=== PATIENT | female | born 1995 | race Caucasian/White ===

== ENCOUNTER → 2020-07-11 13:57 | Outpatient (BNVA) | payer OTHER, SELFPAY | PROVIDERS: Visit Provider Specialist | DX: Z20.828 Contact with and (suspected) exposure to other viral communicable diseases (principal) | CPT/HCPCS: 87635 ==

== ENCOUNTER 2020-07-16 10:52 | Observation (INO) | payer SELFPAY ==
[2020-07-15 09:35] VITALS: BMI 24.4
[2020-07-16] VITALS (65 sets, daily range): BP systolic 91–131; BP diastolic 42–75; PULSE 62–105; RESP 3–25; TEMP 36.7–37; O2SAT 91–99
--- NOTE | 2020-07-16 06:26 | ANES.PREANE2 ---
Pre-Anesthetic Assessment Pre-Anesthetic Assessment: Height/Weight: Height 1.65 m Weight 66.678 kg Temp Pulse Resp BP Pulse Ox 98.1 F 83 18 114/71 97 07/16/20 06:07 07/16/20 06:07 07/16/20 06:07 07/16/20 06:07 07/16/20 06:07 Preop Diagnosis: thyroid mass Proposed Procedure: Operation Date: 07/16/20 07:00 Proposed Procedures p Hemithyroidectomy 27660 C73(Not Applicable) - Alton Chirinos MD Familial anesthetic complications: None Was Beta Bogdan taken within 24 hours: N/A Was Clonidine taken within 24 hours: N/A Last intake: > 8hrs Social: Social History: No alcohol and No tobacco Exam: Pre-Anes Outpt Exam: alert, oriented x 3, clear to auscultation bilaterally and regular rate & rhythm Airway: Cervical ROM: WNL MP: 3 Dentition: Full Anesthetic Plan: ASA status: 1 Anesthesia: General Risk of > 500 ml blood loss (7ml/kg in children): No PFSH Anesthesia Female Reproductive History: Date of last menstrual period: 06/16/20 Data Anesthesia Cardiac Studies: No Data to Display
--- NOTE | 2020-07-16 06:48 | W.PM.OPSUD ---
Surgery/Procedure H&P Update DATE OF PROCEDURE: July 16, 2020 DATE H&P PERFORMED: 07/09/20 H&P UPDATE INFORMATION: I have reviewed H&P completed within last 30 days, I have examined patient prior to procedure and No changes to prior documentation PREOP DIAGNOSIS: Left thyroid malignancy PRIMARY INDICATION FOR PROCEDURE: Left thyroid malignancy PLANNED PROCEDURE: Operation Date: 07/16/20 07:00 Proposed Procedures p Right Dylon/completion thyroidectomy 55135 C73(Not Applicable) - Alton Chirinos MD
[2020-07-16] MEDS: sodium chloride 0.9% 1,000 ML 30 ML IV (06:52)
[2020-07-16] MEDS: scopolamine 1.5 Patch 1 PATCH TRANSDERMA (06:52)
[2020-07-16 07:15] LABS: OR HCG Qualitative Urine Negative (Negative)
[2020-07-16] MEDS: triamcinolone 40 mg/mL SDV IM (07:30)
[2020-07-16] MEDS: ceFAZolin 1,000 mg SDV 1000 MG IRRIGATION (07:50)
[2020-07-16] MEDS: thrombin 5,000 unit SDV 5000 UNIT XX (07:50)
[2020-07-16] MEDS: fluorescein 1 mg Strip XX (07:50)
[2020-07-16] MEDS: EPINEPHrine 1 mg/mL INJ XX (07:50)
[2020-07-16] MEDS: neomycin-poly-bacitracin oint 28 gm 1 APPLIC TOPICAL (09:27)
--- NOTE | 2020-07-16 10:29 | PM.OP ---
Operative Report Date of procedure: July 16, 2020 Pre-op Diagnosis: Left thyroid malignancy Post-op diagnosis: same Post-op Findings: Well healed post surgical changes of the anterior neck Normal appearing right thyroid lobe Normal right recurrent laryngeal nerve O/W normal right tracheoesophageal groove Normal appearing right upper and right lower parathyroid glands Procedure Done: Right norberto/completion thyroidectomy Implants: None Specimens removed/disposition: Right thyroid lobe Pathology: Right thyroid lobe Surgeon: Alton Chirinos Mechanical Drawing Teacher: Louis Melvin Mechanical Drawing Teacher: Judah Holly Anesthesia: General Estimated blood loss (mL): 10 IV fluids (mL): 800 Complications: None Findings: See the above Condition: stable Disposition: ICU Brief History: 24 yo wf with a h/o left thyroid lobe follicular carcinoma who desires right norberto/completion thyroidectomy. Procedure: The patient was identified in the preop holding area was taken to the operating where she was placed on the operating table in the supine position. Anesthesia was obtained with general endotracheal anesthesia. The Nirvana nerve monitoring electrode was placed on the patient's endotracheal tube prior to intubation and its position was confirmed with the glide scope. The previous incision on the neck was identified and was injected local anesthesia. The patient was then prepped and draped in the usual sterile fashion. Using 5 power loupe magnification, the incision was made with a 15 blade and dissection proceeded down through the subcutaneous tissues until the trachea was identified. At this point the strap muscles were elevated off of the right thyroid lobe and the [place] retractor was placed on the patient. At this point using the Nirvana dissecting hemostat and the DeBakey forceps a circumferential dissection was carried out of the right thyroid lobe. The initial portion of the dissection began at the inferior pole after identifying and ligating the middle thyroid vein. The right thyro thymic horn was dissected free from the inferior pole of the right thyroid while protecting the inferior parathyroid. The dissection proceeded into the tracheoesophageal groove. At this point the vagus nerve was stimulated in the carotid sheath and was found to be functioning properly. At this point the dissection proceeded in a circumferential fashion after identifying the recurrent laryngeal nerve visually and electrically in the tracheoesophageal groove. The dissection proceeded superiorly while protecting the recurrent laryngeal nerve until the superior parathyroid was identified and preserved in place. The superior pole was then dissected free from the surrounding tissues. The individual superior thyroid arteries and veins branches were identified and were dissected free and individually clipped with ligaclips and were divided with the bipolar cautery. At this point the right thyroid lobe was rotated medially and the dissection proceeded medially while protecting the recurrent laryngeal nerve. The right lobe was then dissected sequentially out of the right tracheoesophageal groove. Castanon's ligament was identified and then dissected with bipolar forceps removing the right thyroid lobe completely from the patient. At this point the right lobe was inspected for parathyroids and none were found on the specimen. At this point hemostasis was achieved and the right tracheoesophageal groove with bipolar cautery. The right tracheoesophageal groove was irrigated with a copious amount of normal warm saline and the wound was reinspected for hemostasis which was found to be adequate. The right vagus nerve was again stimulated with the NeurSoSocioa dissecting hemostat and was found to be functioning properly. At this point thrombin and Decadron soaked Gelfoam were placed in the tracheoesophageal groove and a small CK drain was placed in the wound. At this point the wound was closed with interrupted 4-0 and 5-0 Monocryl sutures in the subcu and Dermabond and Steri-Strips on the skin. At this point the procedure was terminated and control of the patient was returned to anesthesia where she underwent an uneventful reversal of anesthesia and extubation and was taken to the ICU in stable condition. There were no operative or anesthetic complications
[2020-07-16] MEDS: morphine 4 mg/mL SDV 1 mL 1 MG IVP (11:09)
[2020-07-16] MEDS: famotidine 20 mg/2 mL INJ IVP ×2 (11:09→22:00)
[2020-07-16] MEDS: lactated ringers 1,000 ML 100 ML IV ×2 (11:10→21:48)
--- NOTE | 2020-07-16 11:36 | PC.NURSE ---
Patient was brought to ICU at 1020 via bed. Recovery was done by this nurse and all vitals remained WNL. Patient was complaining of discomfort from previous urinary catheter. PRN pain medication was given. Incision site steri strips in place and CK drain intact and draining serosanguineous fluid.
--- NOTE | 2020-07-16 11:55 | PC.NURSE ---
Patient gave verbal consent to give father information over the phone.
[2020-07-16 13:12] LABS: Calcium 8.8 mg/dL (8.5-10.5); Parathyroid Hormone 82.5 pg/mL (15-65)
--- NOTE | 2020-07-16 15:34 | PM.PN ---
Subjective Subjective: Interval history: 24 yo wf who is night of surgery s/p right norberto/completion thyroidectomy who is doing well by her report. She reports minimal pain medication intake. She has no other c/o. Vitals/I&O/Wt Last Vital Signs Temp 98.1 F 07/16/20 06:07 Pulse 85 07/16/20 14:00 Resp 13 07/16/20 11:50 BP 115/72 07/16/20 11:50 Pulse Ox 97 07/16/20 12:30 07/16/20 07/16/20 07/16/20 06:59 14:59 22:59 Intake Total 850 / 850 Output Total 110 / 110 Balance 740 / 740 Weight last 48 hrs Weight 66.678 kg Weight 66.678 kg Physical Exam Const: COMMON NORMALS: no acute distress and patient oriented x3 GENERAL APPEARANCE: cooperative HENMT: COMMON NORMALS: normocephalic, atraumatic, external ears normal and Normal external nose present HEAD & SCALP: normocephalic and atraumatic FACE & SINUS: normal facial exam NOSE: Normal external nose present EXTERNAL EAR: Yes external ears normal Eye: COMMON NORMALS: EOMs intact bilaterally and conjunctivae normal CONJUNCTIVA: Yes conjunctivae normal Neck/C-Spine: THYROID: other (The thyroidectomy incision is intact without erythema or swelling.) Resp: COMMON NORMALS: normal respiratory effort and clear to auscultation bilaterally AUSCULTATION: clear to auscultation bilaterally Cardio: COMMON NORMALS: regular rate and regular rhythm RATE: regular rate RHYTHM: regular rhythm GI: COMMON NORMALS: Normal to inspection, nondistended, normoactive bowel sounds present Extremity: COMMON NORMALS: normal to inspection Neuro: COMMON NORMALS: patient oriented x3 and CN's II-XII intact bilaterally Skin: COMMON NORMALS: no rashes or lesions noted GENERAL SKIN EXAM: no rashes or lesions noted Urinary Catheter Management^: Cartwright: Cath Placed During This Visit: yes Urinary Catheter Date of Insertion: 07/16/20 Urinary Catheter Time of Insertion: 07:20 A&P Additional A&P Information Impression: 24 yo wf who is night of surgery s/p right norberto/completion thyroidectomy who is doing well. Plan: Overnight ICU observation; closed suction drainage; pain control; regular diet; anticipate discharge in the am. Attestations Medical Necessity Statement*: The patient is being observed overnight for airway obstruction. Coding Level of Care Code Acute Director Equipment for Mundo Wilder
[2020-07-16] MEDS: ceFAZolin 1,000 MG in sodium chloride 0.9% (plus) 50 ML 100 MG IV ×2 (15:54→22:00)
--- NOTE | 2020-07-16 19:03 | ANE.PACU2 ---
Inpatient post-anesthesia follow up: Airway intact: Yes Vital signs: Temperature 98.1 F Pulse Rate 85 Respiratory Rate 13 Blood Pressure 115/72 Pulse Oximetry 97 Oxygen Delivery Me thod Room Air Oxygen Flow Rate Fraction of Inspir ed Oxygen Hydration adequate: Yes Nausea and vomiting: No Pain level: 2 Mental status: Baseline
[2020-07-17] VITALS (17 sets, daily range): BP systolic 84–106; BP diastolic 37–63; PULSE 65–104; RESP 14–22; TEMP 36.8–37.1; O2SAT 93–96
--- NOTE | 2020-07-17 05:24 | PM.PN ---
Subjective Subjective: Interval history: 24 yo wf who is POD #1 s/p right norberto/completion thyroidectomy who is doing well. The patient reports that she is eating well, speaking well, and has no other c/o. She reports minimal pain. Vitals/I&O/Wt Last Vital Signs Temp 98.6 F 07/17/20 04:00 Pulse 78 07/17/20 04:30 Resp 17 07/17/20 04:30 BP 94/41 07/17/20 04:30 Pulse Ox 94 07/17/20 04:30 07/16/20 07/16/20 07/17/20 14:59 22:59 06:59 Intake Total 850 / 850 2960 / 3810 Output Total 110 / 110 2009 Balance 740 / 740 950 / 1690 - 1682 Weight last 48 hrs Weight 66.678 kg Weight 66.678 kg Physical Exam Const: COMMON NORMALS: no acute distress and patient oriented x3 GENERAL APPEARANCE: cooperative and well developed ORIENTATION/CONSCIOUSNESS: Yes awake HENMT: COMMON NORMALS: normocephalic, atraumatic, hearing grossly normal bilaterally, external ears normal and Normal external nose present HEAD & SCALP: normocephalic and atraumatic FACE & SINUS: normal facial exam NOSE: Normal external nose present EXTERNAL EAR: Yes external ears normal Eye: COMMON NORMALS: EOMs intact bilaterally GENERAL EYE: appearance normal, both eyes and all related structures Neck/C-Spine: COMMON NORMALS: full ROM and no lymphadenopathy GENERAL: Yes other (The thyroidectomy incision is clean, intact, and without swelling.) Resp: COMMON NORMALS: normal respiratory effort and clear to auscultation bilaterally AUSCULTATION: clear to auscultation bilaterally Cardio: COMMON NORMALS: regular rate, regular rhythm and No murmurs present (Cardio) RATE: regular rate RHYTHM: regular rhythm Extremity: COMMON NORMALS: normal to inspection Neuro: COMMON NORMALS: patient oriented x3 and CN's II-XII intact bilaterally Psych: COMMON NORMALS: mental status grossly normal Skin: COMMON NORMALS: no rashes or lesions noted GENERAL SKIN EXAM: no rashes or lesions noted Urinary Catheter Management^: Cartwright: Cath Placed During This Visit: yes Urinary Catheter Date of Insertion: 07/16/20 Urinary Catheter Time of Insertion: 07:20 Data Attestation for Other Data: I personally reviewed and interpreted the following: Other data: Intact PTH and serum Calcium levels A&P Additional A&P Information Impression: 24 yo wf who is POD #1 s/p right norberto/completion thyroidectomy who is doing well Plan: D/C to home; regular diet; empty CK drain once daily and prn; f/u in Dr. Chirinos's office on July, @ 13:00 hours; contact Dr. Chirinos for any problems. We will start Synthroid at the first post op visit. Attestations Medical Necessity Statement*: The patient required overnight observation of her airway. Coding Level of Care Code Acute Corporate Intern for [employer] Wilder
--- NOTE | 2020-07-17 08:16 | PC.NURSE ---
Patient was discharged at 0800 by this nurse via wheelchair. Patient was accompanied by in personal vehicle. All discharge instructions and orders were with patient.
== END 2020-07-17 08:00 | disposition home or self-care (01) ==
LOC: ICU 07-17 05:35
PROVIDERS: Admitting Provider Specialist; Visit Provider Specialist
PROC: (CPT 60240; principal; 2020-07-16 07:00)
DX: C73 Malignant neoplasm of thyroid gland (principal)
CPT/HCPCS: 60240; 12345; 36415; 51702; 81025; 82310; 83970; 84703; 88307; 94664; G0378; J0171; J0330; J0690; J1100; J2270; J2370; J2405; J2704; J3010; J3301; J3490; J7030

== ENCOUNTER → 2020-07-22 11:00 | Outpatient (BNVA) | payer SELFPAY | PROVIDERS: Referring Provider Nurse Practitioner Family; Visit Provider Podiatrist Foot & Ankle Surgery | DX: M25.579 Pain in unspecified ankle and joints of unspecified foot (principal) | CPT/HCPCS: 73610; 87635 ==

== ENCOUNTER 2020-07-23 05:51 | Day surgery (SDC) | payer SELFPAY ==
[2020-07-22 16:07] VITALS: BMI 24.4
[2020-07-23] VITALS (10 sets, daily range): BP systolic 99–117; BP diastolic 65–82; PULSE 60–89; RESP 10–18; TEMP 36.4–36.6; O2SAT 95–100
--- NOTE | 2020-07-23 | SCC_ITS ---
Procedure Done: Open reduction internal fixation right medial malleolus fracture. CPT 75506 22 seconds of fluoroscopic guidance, for a cumulative dose of 0.590 mGy, was provided to Dr. Sullivan by the radiology department. C-arm images of the RIGHT ankle were saved for the patient's permanent record. [facility] HEALTHSukhjinder
[2020-07-23 06:10] LABS: OR HCG Qualitative Urine Negative (Negative)
--- NOTE | 2020-07-23 06:19 | W.PM.OPSUD ---
Surgery/Procedure H&P Update DATE OF PROCEDURE: July 23, 2020 DATE H&P PERFORMED: 07/22/20 H&P UPDATE INFORMATION: I have reviewed H&P completed within last 30 days, I have examined patient prior to procedure, No changes to prior documentation and H&P is in [facility] EMR on date indicated PREOP DIAGNOSIS: Right medial malleolus fracture PLANNED PROCEDURE: Operation Date: 07/23/20 07:00 Proposed Procedures p Open reduction internal fixation right medial malleolus fracture 02243 S82.55(Right) - Richmond Sullivan DPM
--- NOTE | 2020-07-23 06:24 | PM.OP ---
Operative Report Date of procedure: July 23, 2020 Pre-op Diagnosis: Right medial malleolus fracture Post-op diagnosis: same Post-op Findings: None Procedure Done: Open reduction internal fixation right medial malleolus fracture. CPT 40775 Implants: Petr 4.0 x 55 mm headed partially-threaded cannulated screw x2 Specimens removed/disposition: None Pathology: none sent Surgeon: Richmond Sullivan D.P.M. Financial Services Consultant: Ramila Anesthesia: General Estimated blood loss: Less than 5 mL Tourniquet time: See intraoperative documentation IV fluids: None Urine output: None Complications: None Condition: stable Disposition: PACU Brief History: Bucked off a horse injuring her right ankle has a medial malleolar fracture that is displaced anteriorly. Recommend open reduction internal fixation right ankle risks include pain, bleeding, numbness, infection, delayed union, malunion, hardware irritation and hardware failure need for further surgical intervention there also is highly likely to result in posttraumatic arthritis. Risks of surgical site dehiscence, bruising and swelling. Risk of DVT, PE, heart attack and stroke. Patient wishes to proceed informed consent is signed by myself and patient I initialed the right lower extremity indicating the site of surgery all questions answered to her satisfaction. No guarantees written, expressed or implied. Procedure: Popliteal block right lower extremity performed for anesthesia preoperatively. Patient was brought to the operating room and placed on the operating table in supine position. A timeout was performed. Anesthesia was then administered by the anesthesia service. Local anesthesia injected by myself 10 cc of 1% lidocaine and 0.5 sent Marcaine plain mixture 1-1 for saphenous nerve block and soft tissue block proximal to the incision. Well-padded pneumatic tourniquet applied to the right leg. Right lower extremity was then scrubbed, prepped and draped utilizing normal aseptic technique. Right foot was examined a weighted with an Esmarch bandage and a tourniquet inflated to 250 mmHg. Attention was directed the medial ankle where the medial malleolus was palpated a curvilinear incision was made through skin and dissection carried down through subcutaneous tissue to the layer of periosteum utilizing a combination of blunt and sharp technique. Care was taken to retract and preserve neurovascular and tendinous structures. All bleeders were ligated and cauterized as necessary. Linear periosteal incision was made and the fracture was identified evacuated of hematoma flushed and temporarily fixated followed by fixation of [place] 4.0 screws by 55 mm in length across the fracture site with excellent bony apposition and compression noted utilizing standard AO technique. Position confirmed in all 3 views both AP mortise and lateral noted to be adequate with reduction of the fracture. Mortise view shows screws well-placed without violating the ankle joint/mortise. Incision site was flushed with copious amounts of sterile saline solution. Periosteum reapproximated utilizing 3-0 Vicryl, subcutaneous tissue reapproximated utilizing 4-0 Vicryl and skin closed utilizing 4-0 nylon in a horizontal mattress technique. Incision site was dressed with Adaptic sterile 4 x 4's, Kerlix and Miki wrap followed by application of cam boot. Tourniquet was deflated and a prompt hyperemic response is noted to the distal digits of the right foot. Patient tolerated the procedure and anesthesia well and was transferred to the PACU with vital signs stable and vascular status intact. Following a period of postoperative monitoring she will be discharged home is to remain strict nonweightbearing, she has crutches to facilitate this. She was prescribed pain medication to be taken judiciously as needed and I advised her to begin taking a 81 mg aspirin once daily for DVT prophylaxis starting tomorrow.
[2020-07-23] MEDS: midazolam 1 mg/mL INJ 5 ML 5 MG IVP (06:39)
[2020-07-23] MEDS: sodium chloride 0.9% 1,000 ML 30 ML IV (06:50)
[2020-07-23] MEDS: scopolamine 1.5 Patch 1 PATCH TRANSDERMA (06:51)
--- NOTE | 2020-07-23 07:00 | ANES.PREANE2 ---
Pre-Anesthetic Assessment Pre-Anesthetic Assessment: Height/Weight: Height 1.65 m Weight 66.678 kg Temp Pulse Resp BP Pulse Ox 97.8 F 76 18 117/65 99 07/23/20 06:54 07/23/20 06:54 07/23/20 06:54 07/23/20 06:54 07/23/20 06:54 Preop Diagnosis: Right medial malleolus fracture Proposed Procedure: Operation Date: 07/23/20 07:00 Proposed Procedures p Open reduction internal fixation right medial malleolus fracture 16047 S82.55(Right) - Richmond Sullivan DPM Familial anesthetic complications: None Was Beta Bogdan taken within 24 hours: N/A Was Clonidine taken within 24 hours: N/A Last intake: Intake Last Liquid Date 07/22/20 Last Liquid Time 20:00 Last Solid Date 07/22/20 Last Solid Time 19:30 Social: Social History: No alcohol and No tobacco Exam: Pre-Anes Outpt Exam: alert, oriented x 3, clear to auscultation bilaterally and regular rate & rhythm Airway: Cervical ROM: WNL MP: 2 Dentition: Full Metabolic: Metabolic: Thyroid Anesthetic Plan: ASA status: 1 Anesthesia: General and Regional (specify below) Risk of > 500 ml blood loss (7ml/kg in children): No Meds/Allergies Current Medications: Current Medications Generic Name Dose Route Start Last Admin Trade Name Freq PRN Reason Stop Dose Admin Sodium Chloride 1,000 mls @ 30 ml s/hr 07/23/20 06:00 07/23/20 06:50 Sodium Chloride 0.9% IV 07/24/20 05:59 30 mls/hr .Q24H CHEPE Administration PFSH Anesthesia Female Reproductive History: Date of last menstrual period: 06/13/20 Data Anesthesia Other Labs: Laboratory Results - last 48 hr 07/23/20 06:06 Urine HCG, Qual Negative Cardiac Studies: No Data to Display
--- NOTE | 2020-07-23 07:01 | ANES.PROC ---
Anesthesia Procedures Procedure/Date: 07/23/20 Nerve Block ^: Nerve Block 1: Main Anesthesia: general anesthesia Time Out Performed: Yes Consent: requested by attending/covering physician, from patient, risks and benefits reviewed and patient agrees to proceed Nerve block location: popliteal (R) Anesthesia monitors applied: pulse oximetry, EKG, BP cuff and oxygen Nerve block position: supine Anesthetic Used: ropivicaine 0.5% and with decadron (4 mg) Amount of anesthesia used (mL): 30 Ultrasound used to: recognize landmarks Nerve Stimulator Used?: No Interscalene/Femoral BLK: 4 stimuplex 21 g needle used for position and inplane approach, visualize local anesthetic spread and no vascular puncture identified Injection: neg aspiration of heme Patient Tolerated Procedure: well and no complications Complications: none
[2020-07-23] MEDS: lidocaine 1% INJ 20 mL SUBCUT (07:34)
--- NOTE | 2020-07-23 08:04 | XRR_ITS ---
PROCEDURE INFORMATION: Exam: XR Right Ankle Exam date and time: 07/23/2020 8:08 AM Age: 24 years old Clinical indication: Device placement; Other: Open reduction internal fixation right medial; Prior surgery; Surgery date: Post-operative (0-2 days); Additional info: Post op TECHNIQUE: Imaging protocol: XR Right ankle. Views: 3 or more views. COMPARISON: CR XR ankle RT min 3V* [id number] 07/22/2020 11:07 AM FINDINGS: Bones/joints: Two metal orthopedic screws transfix an oblique fracture through the medial malleolus. Position and alignment of the fracture and ankle mortise appears satisfactory. Soft tissues: Normal. XR/XR ankle RT min 3V* [id number] IMPRESSION: Satisfactory position of the internally fixated medial malleolar fracture.
--- NOTE | 2020-07-23 08:11 | P.PCN_ITS ---
PACU note PACU note: VSS, Good respiratory effort, report to FIRE SAFETY MANAGER Post-Anesthesia Exam: awake
--- NOTE | 2020-07-23 08:11 | PM.PACU ---
PACU note PACU note: VSS, Good respiratory effort, report to SUPERVISOR FISHING Post-Anesthesia Exam: awake
[2020-07-23] MEDS: oxyCODONE-APAP 5-325 mg Tablet 1 TAB PO (08:45)
--- NOTE | 2020-07-23 09:58 | ANE.PACU2 ---
Inpatient post-anesthesia follow up: Airway intact: Yes Vital signs: Temperature 97.8 F Pulse Rate 60 Respiratory Rate 16 Blood Pressure 113/81 Pulse Oximetry 97 Oxygen Delivery Me thod Room Air Oxygen Flow Rate Fraction of Inspir ed Oxygen Hydration adequate: Yes Nausea and vomiting: No Pain level: 3 Mental status: Baseline
== END 2020-07-23 09:48 | disposition home or self-care (01) ==
PROVIDERS: Anesthesiology; Visit Provider Podiatrist Foot & Ankle Surgery
PROC: (CPT 27766; principal; 2020-07-23 07:00)
DX: S82.51XA Displaced fracture of medial malleolus of right tibia, initial encounter for closed fracture (principal); X58.XXXA Exposure to other specified factors, initial encounter
CPT/HCPCS: 27766; 64450; 73610; 76000; 76942; 81025; 84703; 96374; C1713; J0690; J1100; J2250; J2704; J2795; J3010; J3490; J7030

== ENCOUNTER 2020-08-02 10:44 | Outpatient (CLI) | payer SELFPAY ==
--- NOTE | 2020-08-02 11:05 | XR_ITS ---
WS: [id number] Right ankle, 3 views, 08/02/2020 Clinical Data: pain Comparison: Right ankle, 07/23/2020. Findings: The medial malleolar fracture is reduced with 2 orthopedic screws. The right ankle mortise is in good position. XR/XR ankle RT min 3V* [id number] Impression: Internal fixation of medial malleolar fracture of the right ankle.
== END 2020-08-02 10:45 | disposition home or self-care (01) ==
LOC: RAD 11:01
PROVIDERS: Visit Provider Podiatrist Foot & Ankle Surgery
DX: S82.51XA Displaced fracture of medial malleolus of right tibia, initial encounter for closed fracture (principal); X58.XXXA Exposure to other specified factors, initial encounter
CPT/HCPCS: 73610

== ENCOUNTER → 2020-08-09 13:15 | Outpatient (BNVA) | payer SELFPAY | PROVIDERS: Visit Provider Podiatrist Foot & Ankle Surgery | DX: S82.51XA Displaced fracture of medial malleolus of right tibia, initial encounter for closed fracture (principal) | CPT/HCPCS: 73610 ==

== ENCOUNTER → 2020-08-26 11:22 | Outpatient (BNVA) | payer SELFPAY | PROVIDERS: Visit Provider Podiatrist Foot & Ankle Surgery | DX: S82.53XA Displaced fracture of medial malleolus of unspecified tibia, initial encounter for closed fracture (principal); Z98.890 Other specified postprocedural states; X58.XXXA Exposure to other specified factors, initial encounter | CPT/HCPCS: 73610 ==

== ENCOUNTER → 2020-09-19 15:21 | Outpatient (BNVA) | payer SELFPAY | PROVIDERS: Visit Provider Podiatrist Foot & Ankle Surgery | DX: S82.53XA Displaced fracture of medial malleolus of unspecified tibia, initial encounter for closed fracture (principal); Z98.890 Other specified postprocedural states; X58.XXXA Exposure to other specified factors, initial encounter | CPT/HCPCS: 73610 ==

== ENCOUNTER → 2020-12-11 09:44 | Outpatient (BNVA) | payer SELFPAY | PROVIDERS: Visit Provider Nurse Practitioner Women's Health | DX: N92.6 Irregular menstruation, unspecified (principal); E03.9 Hypothyroidism, unspecified | CPT/HCPCS: 81025 ==

== ENCOUNTER 2020-12-20 10:22 | Outpatient (CLI) | payer SELFPAY ==
--- NOTE | 2020-12-20 10:15 | US_ITS ---
WS: [id number] EARLY OBSTETRICAL ULTRASOUND (<14 WEEKS). HISTORY: N92.6 - Irregular menstruation, unspecified COMPARISON: None available. Intrauterine gestational sac is identified. Sac measurement corresponds to a gestation of 6 weeks and 4 days. There is no yolk sac or crown rump identified within the sac. The sac is slightly elongated and irregular shaped with a moderate-sized subchorionic hemorrhage. Subchorionic hemorrhage measures 2.4 x 2.1 x 1.0 cm. Cervix is closed. There is a small amount of free fluid in the cul-de-sac. Normal vascularity within each ovary. Several small follicles in the RIGHT ovary. There is a dominant cyst in the LEFT ovary me asuring 2.6 x 2.3 x 2.4 cm. This cyst has a thick wall which is likely a corpus luteum of . US/US OB <=14 wk fetus w transvag IMPRESSION: 1. No intrauterine gestation identified. Highly suspicious for anembryonic ges tation. Sac measurement corresponds to gestation of 6 weeks and 4 days. 2. Corpus luteal cyst LEFT ovary. 3. Without visualizing an intrauterine gestation ectopic is not completely exc luded. 4. Small amount of free fluid.
== END 2020-12-20 10:23 | disposition home or self-care (01) ==
PROVIDERS: Visit Provider Nurse Practitioner Women's Health
DX: Z36.89 Encounter for other specified antenatal screening (principal); N92.6 Irregular menstruation, unspecified; E03.9 Hypothyroidism, unspecified; Z3A.01 Less than 8 weeks gestation of pregnancy
CPT/HCPCS: 76801; 76817

== ENCOUNTER → 2020-12-24 13:49 | Outpatient (BNVA) | payer SELFPAY | PROVIDERS: Visit Provider Nurse Practitioner Women's Health | DX: O36.80X0 Pregnancy with inconclusive fetal viability, not applicable or unspecified (principal); O20.0 Threatened abortion | CPT/HCPCS: 81000; 84702; 85025; 86850; 86900 ==

== ENCOUNTER → 2020-12-27 11:35 | Outpatient (BNVA) | payer SELFPAY | PROVIDERS: Visit Provider Nurse Practitioner Women's Health | DX: O20.0 Threatened abortion (principal) | CPT/HCPCS: 84702 ==

== ENCOUNTER → 2021-01-01 13:03 | Outpatient (BNVA) | payer SELFPAY | PROVIDERS: Visit Provider Obstetrics & Gynecology | DX: O20.0 Threatened abortion (principal) | CPT/HCPCS: 84702; 85025; 86850; 86900 ==

== ENCOUNTER → 2021-01-06 15:42 | Outpatient (BNVA) | payer SELFPAY | PROVIDERS: Visit Provider Obstetrics & Gynecology | DX: O03.9 Complete or unspecified spontaneous abortion without complication (principal); Z3A.00 Weeks of gestation of pregnancy not specified | CPT/HCPCS: 76857 ==

== ENCOUNTER → 2021-05-02 08:36 | Outpatient (BNVA) | payer SELFPAY | PROVIDERS: Visit Provider Obstetrics & Gynecology | DX: Z34.80 Encounter for supervision of other normal pregnancy, unspecified trimester (principal); Z34.90 Encounter for supervision of normal pregnancy, unspecified, unspecified trimester; Z85.850 Personal history of malignant neoplasm of thyroid; Z87.59 Personal history of other complications of pregnancy, childbirth and the puerperium; O34.219 Maternal care for unspecified type scar from previous cesarean delivery; E03.9 Hypothyroidism, unspecified | CPT/HCPCS: 80307; 81000; 84443; 85025; 86592; 86762; 86787; 86803; 86850; 86900; 87077; 87086; 87184; 87340; 87491; 87591; 87661; 87806; 88175 ==

== ENCOUNTER → 2021-05-30 11:36 | Outpatient (BNVA) | payer SELFPAY | PROVIDERS: Visit Provider Obstetrics & Gynecology | DX: Z34.80 Encounter for supervision of other normal pregnancy, unspecified trimester (principal); Z3A.00 Weeks of gestation of pregnancy not specified | CPT/HCPCS: 81000; 84443; 87077; 87086; 87184 ==

== ENCOUNTER → 2021-06-27 10:34 | Outpatient (BNVA) | payer SELFPAY | PROVIDERS: Visit Provider Obstetrics & Gynecology | DX: Z34.90 Encounter for supervision of normal pregnancy, unspecified, unspecified trimester (principal); Z85.850 Personal history of malignant neoplasm of thyroid; E03.9 Hypothyroidism, unspecified; Z3A.00 Weeks of gestation of pregnancy not specified | CPT/HCPCS: 84315; 84443 ==

== ENCOUNTER → 2021-07-24 14:08 | Outpatient (BNVA) | payer SELFPAY | PROVIDERS: Visit Provider Obstetrics & Gynecology | DX: Z34.80 Encounter for supervision of other normal pregnancy, unspecified trimester (principal); Z3A.00 Weeks of gestation of pregnancy not specified | CPT/HCPCS: 81000 ==

== ENCOUNTER → 2021-08-22 12:07 | Outpatient (BNVA) | payer SELFPAY | PROVIDERS: Visit Provider Obstetrics & Gynecology | DX: Z34.90 Encounter for supervision of normal pregnancy, unspecified, unspecified trimester (principal) | CPT/HCPCS: 81000; 82950; 85025 ==

== ENCOUNTER → 2021-09-05 10:49 | Outpatient (BNVA) | payer SELFPAY | PROVIDERS: Visit Provider Obstetrics & Gynecology | DX: Z34.90 Encounter for supervision of normal pregnancy, unspecified, unspecified trimester (principal); L91.8 Other hypertrophic disorders of the skin | CPT/HCPCS: 81000; 88304; 88342 ==

== ENCOUNTER 2021-09-18 13:50 | Outpatient (CLI) | payer SELFPAY ==
[2021-09-18 14:02] VITALS: BMI 27.4
[2021-09-18 14:03] VITALS: BP 119/70; PULSE 81
[2021-09-18 14:23] VITALS: BP 106/61; PULSE 85
--- NOTE | 2021-09-18 14:26 | US_ITS ---
WS: [id number] ULTRASOUND OB LIMITED TECHNIQUE: Limited ultrasound examination of the fetus. CLINICAL INFORMATION: SMALL FOR GESTIONAL AGE COMPARISON: None. FINDINGS: Cervix is long and closed measuring 5.0 cm. Single interuterine gestation. presentation is cephalic Placental location is anterior. Placenta grade: 1 heart rate 150 BPM. [place] 11.5 cm Anatomy: BDP: 8.2 cm = 32w5d HC: 30.8 cm = 34w3d AC: 28.0 cm = 32w0d FEMUR LENGTH: 6.2 cm = 32w1d Estimated weight: 1956 g., 48 %. EGA by ultrasound: 32w6d INES by ultrasound: 11/07/2021 Biophysical profile 8 out of 8. breathin movement: 2 tone: 2 Amniotic fluid: 2 US/US OB F/U w BPP wo NST IMPRESSION: Normal biophysical profile 8 out of 8
[2021-09-18 14:43] VITALS: BP 99/54; PULSE 82
[2021-09-18 15:03] VITALS: BP 105/54; PULSE 82
== END 2021-09-18 15:25 | disposition home or self-care (01) ==
LOC: OPOB 13:52 → OBGYN 13:54
PROVIDERS: Visit Provider Obstetrics & Gynecology
DX: O36.8190 Decreased fetal movements, unspecified trimester, not applicable or unspecified (principal); Z3A.00 Weeks of gestation of pregnancy not specified
CPT/HCPCS: 59025; 76816; 76819; 81000; 99211

== ENCOUNTER → 2021-10-03 14:28 | Outpatient (BNVA) | payer SELFPAY | PROVIDERS: Visit Provider Obstetrics & Gynecology | DX: Z34.90 Encounter for supervision of normal pregnancy, unspecified, unspecified trimester (principal) | CPT/HCPCS: 81000; 84443; 85025; 87086 ==

== ENCOUNTER → 2021-10-16 15:37 | Outpatient (BNVA) | payer SELFPAY | PROVIDERS: Visit Provider Obstetrics & Gynecology | DX: Z34.90 Encounter for supervision of normal pregnancy, unspecified, unspecified trimester (principal) | CPT/HCPCS: 81000; 87081 ==

== ENCOUNTER → 2021-10-23 13:00 | Outpatient (BNVA) | payer SELFPAY | PROVIDERS: Visit Provider Obstetrics & Gynecology | DX: Z34.90 Encounter for supervision of normal pregnancy, unspecified, unspecified trimester (principal) | CPT/HCPCS: 81000 ==

== ENCOUNTER 2021-11-06 05:14 | Inpatient (IN) | payer SELFPAY ==
[2021-11-06] VITALS (123 sets, daily range): BP systolic 87–129; BP diastolic 44–79; PULSE 48–89; RESP 16–18; TEMP 35.3–36.3; O2SAT 93–99; BMI 26.2
[2021-11-06] MEDS: lactated ringers 1,000 ML 999 ML IV ×2 (05:52→15:58)
[2021-11-06 06:01] LABS: Basophils % 0.2 %; Eosinophils % 0.5 %; Hemoglobin 12.1 g/dL (11.5-15.3); Lymphocytes # 1.9 10^3/uL (0.8-4.8); Lymphocytes % 32.3 %; Mean Corpuscular HGB Conc 34.6 g/dL (30.0-36.0); Mean Corpuscular Hemoglobin 30.2 pg (28.0-34.0); Mean Corpuscular Volume 87.3 fl (81-99); Mean Platelet Volume 9.7 fL (7.4-10.4); Monocytes # 0.4 10^3/uL (0.2-0.9); Monocytes % 7.3 %; Neutrophils # 3.45 10^3/uL (1.8-7.7); Neutrophils % 58.5 %; Nucleated Red Blood Cells % 0 %; Platelet Count 183 10^3/cmm (130-400); Red Blood Count 4.01 10^6/uL (4.1-5.3); Red Cell Distribution Width 14.1 % (12.1-15.1); White Blood Count 5.9 10^3/uL (4.0-10.0)
[2021-11-06] MEDS: famotidine 20 mg/2 mL INJ IVP (06:49)
[2021-11-06] MEDS: metoclopramide 5 mg/mL SDV 2 mL 10 MG IVP (06:50)
[2021-11-06] MEDS: citric acid-sodium citrate 30 mL UDC PO (06:50)
--- NOTE | 2021-11-06 07:03 | W.PM.OPSUD ---
Surgery/Procedure H&P Update DATE OF PROCEDURE: November 06, 2021 DATE H&P PERFORMED: 10/23/21 H&P UPDATE INFORMATION: I have reviewed H&P completed within last 30 days, I have examined patient prior to procedure and No changes to prior documentation PREOP DIAGNOSIS: Right medial malleolus fracture PLANNED PROCEDURE: Operation Date: 11/06/21 07:00 Proposed Procedures p Repeat section 21680, bilateral tubal ligation 29351,O34.219,Z30.2(Bilateral) - Lanny Golden MD Related Problem List Diagnoses (1) Maternal varicella, non-immune: (2) Previous delivery affecting :
--- NOTE | 2021-11-06 08:46 | PM.OP ---
Operative Report Date of procedure: November 06, 2021 Pre-op diagnosis: Preop Diagnosis term iup. previous desires repeat Post-op diagnosis: same Post-op findings: term male infant in the cephalic presentation Procedure done: repeat Specimens removed/disposition: placenta Surgeon: Lanny Golden Anesthesia: Other (spinal) Estimated blood loss (mL): 400 IV fluids (mL): 600 Urine output (mL): 200 Complications: none Condition: stable Disposition: floor Procedure: The patient was taken to the operating room where spinal anesthesia was administered and found to be adequate. She was prepped and draped in the normal sterile fashion in the dorsal supine position with a leftward tilt. A Pfannenstiel skin incision was made and carried down to the underlying layer of fascia. The fascia was nicked in the midline and extended laterally with the Bustillo scissors. The fascia was then tented up and the rectus muscles dissected off sharply. The rectus muscles were and the peritoneum entered bluntly with the digit. The peritoneal incision was extended superiorly and inferiorly with good visualization of the bladder. The Alexsander O retractor was placed. It was clear of any bowel or omentum. The bladder flap was created sharply with the Metzenbaum scissors. A low transverse uterine incision was made and carried down to the bag of water. The bag of water was ruptured and the uterine incision extended cephalocaudad. The scalp was grasped and brought through the incision. The nose and mouth were bulb suctioned. The shoulders and body delivered atraumatically. The baby was allowed to rest, while being dried, for 1 minute and then the cord was clamped and cut. The baby was handed to the waiting assistant director of security. The placenta was delivered by expression. The uterus was exteriorized and cleared of all clots and debris. The uterine incision was closed with 0 Vicryl in a running fashion. A second imbricating layer of 3-0 Monocryl was used to close the uterus. The bladder flap was closed with 3-0 Monocryl. There was excellent hemostasis. The Alexsander O retractor was removed. The uterus was returned to the abdomen. The peritoneum was closed with 3-0 Monocryl, incorporating the rectus muscle. The fascia was closed with 0 Vicryl in 2 separate sutures overlapping in the midline. The skin was closed with absorbable montserrat. Apgars on baby 8 at 1 minute and 9 at 5 minutes. weight 7 pounds 7 ounces. Mother and baby were stable post delivery.
[2021-11-06] MEDS: docusate sodium 100 mg Capsule PO ×2 (11:04→17:03)
[2021-11-06] MEDS: ketorolac 30 mg/mL INJ IVP ×3 (11:04→20:44)
[2021-11-06] MEDS: dextrose 5%-lactated ringers 1,000 ML 125 ML IV ×2 (11:35→21:37)
[2021-11-06] MEDS: sodium chloride 0.9% 500 ML 999 ML IV (13:52)
[2021-11-06] MEDS: FUROsemide 10 mg/mL SDV 2mL IVP (16:33)
--- NOTE | 2021-11-06 17:08 | PC.NURSE ---
Patient sitting up in chair with a smoothie that her family brought in. Patient reports that she drank 1/4 of the smoothie. 500ml of emesis noted in emesis basin, dark brown in color. Patient reminded of clear liquid diet orders currently in place and discussed options for what is available as part of that diet order. Patient requested sprite and sprite provided at this time. Patient also offered medication for nausea and vomiting. Patient refused and states that she is no longer feeling nauseous and so she doesn't want any medication at this time.
--- NOTE | 2021-11-06 17:18 | ANES.PREANE2 ---
Pre-Anesthetic Assessment Height/Weight: Height 1.65 m Weight 71.668 kg Temp Pulse Resp BP Pulse Ox 96.3 F L 59 L 16 91/50 97 11/06/21 14:21 11/06/21 16:01 11/06/21 14:37 11/06/21 15:52 11/06/21 16:01 Preop Diagnosis: Right medial malleolus fracture Operation Date: 11/06/21 07:00 Proposed Procedures p Repeat section 99799, bilateral tubal ligation 60975,O34.219,Z30.2(Bilateral) - Lanny Golden MD Familial anesthetic complications: none Was Beta Bogdan taken within 24 hours: N/A Was Clonidine taken within 24 hours: N/A Last intake: Intake Last Liquid Date 11/06/21 Last Liquid Time 03:45 Last Solid Date 11/05/21 Last Solid Time 18:00 Social No alcohol and No tobacco Exam alert, oriented x 3, clear to auscultation bilaterally and regular rate & rhythm Airway Submandibular: within normal limits Cervical ROM: within normal limits Mallampati: Class II CV/HEM Anemia Metabolic Thyroid Disease Anesthetic Plan ASA status: 2 Anesthesia: Regional (specify below) (SAB) Medications/Allergies Home Medications Medication Instructions Recorded Confirmed Last Taken Type PNV 153-FA 400 mcg-om3 35 mg-dha tab PO 05/02/21 10/23/21 1 Day Ago History 25 mg-epa 5 mg-fish oil chew ~11/05/21 tablet ( Gummies) ferrous sulfate 140 mg (45 mg 140 mg PO DAILY 09/05/21 11/06/21 Unknown History iron) tablet,extended release levothyroxine 175 mcg capsule 175 mcg PO DAILY #30 cap 09/16/21 11/06/21 1 Day Ago Rx ~11/05/21 Allergies Allergy/AdvReac Type Severity Reaction Status Date / Time No Known Drug Allergies Allergy Unknown Verified 11/06/21 05:55 Current Medications Generic Name Dose Route Start Last Admin Trade Name Eloyq PRN Reason Stop Dose Admin Docusate Sodium 100 mg 11/06/21 09:00 11/06/21 11:04 Docusate Sodium 100 Mg Capsule PO 100 mg BID CHEPE Administration Ferrous Sulfate 325 mg 11/06/21 18:00 11/06/21 12:45 Ferrous Sulfate Ec 325 Mg Tablet PO Not Given BIDWM CHEPE Lactated Ringer's 1,000 mls @ 125 mls/hr 11/06/21 05:30 11/06/21 12:46 Lactated Ringers IV Not Given .Q8H CHEPE Sodium Chloride 500 mls @ 999 mls/hr 11/06/21 08:45 11/06/21 13:52 Sodium Chloride 0.9% IV 999 mls/hr .Q31M PRN Administration urine output Dextrose/Lactated Ringer's 1,000 mls @ 125 mls/hr 11/06/21 08:45 11/06/21 11:35 Dextrose 5%-Lactated Ringers IV 125 mls/hr .Q8H CHEPE Administration Ketorolac Tromethamine 30 mg 11/06/21 08:45 11/06/21 11:04 Ketorolac 30 Mg/Ml Inj IVP 11/07/21 02:46 30 mg Q6H CHEPE Administration PFSH Anesthesia Medical History Follicular carcinoma of thyroid (~08/2019) Hypothyroid [facility]-- Irregular menses No pertinent past medical history neghx: htn,dm,dvt/pe PCP: None Surgical History History of ankle surgery (~07/2020) Right ankle--surgery to repair History of tonsillectomy and adenoidectomy (~1999) Hx of section 2018- due to placental abruption 2019- repeat Hx of thyroidectomy (06/2020) Removal of thyroid tumor in 08/2019, removal of thyroid in 06/2020-- was malignant Family History Family/Other Breast cancer Maternal Great Grandmother--dx age 70 Grandfather Diabetes Paternal Hypertension Paternal Father Hypertension Mother Thyroid disease Denies family history of Colon cancer Ovarian cancer Heart disease Hypercholesteremia Uterine cancer Stroke Female Reproductive History Date of last menstrual period: 06/13/20 : 5 Data Anesthesia : 11/06/21 05:47 Short CBC 11/06/21 Range/Units 05:47 WBC 5.9 (4.0-10.0) 10^3/uL Hgb 12.1 (11.5-15.3) g/dL Hct 35.0 L (37.0-47.0) % MCV 87.3 (81-99) fl Plt Count 183 (130-400) 10^3/cmm Neut % (Auto) 58.5 % Neut # (Auto) 3.45 (1.8-7.7) 10^3/uL Blood Bank 11/06/21 05:47 Blood Type A Positive Rho(D) Type Positive Cardiac Studies: No Data to Display
--- NOTE | 2021-11-06 17:19 | ANE.PACU2 ---
Inpatient post-anesthesia follow up: Airway intact: Yes Vital signs: Temperature 96.3 F Pulse Rate 59 Respiratory Rate 16 Blood Pressure 91/50 Pulse Oximetry 97 Oxygen Delivery Me thod Room Air Oxygen Flow Rate Fraction of Inspir ed Oxygen Hydration adequate: Yes Nausea and vomiting: No Pain level: 2 Mental status: Baseline
[2021-11-06 23:06] LABS: Hematocrit 27.7 % (37.0-47.0); Hemoglobin 9.8 g/dL (11.5-15.3); Mean Corpuscular HGB Conc 35.4 g/dL (30.0-36.0); Mean Corpuscular Hemoglobin 30.4 pg (28.0-34.0); Mean Platelet Volume 10.1 fL (7.4-10.4); Platelet Count 151 10^3/cmm (130-400); Red Blood Count 3.22 10^6/uL (4.1-5.3); Red Cell Distribution Width 13.8 % (12.1-15.1); White Blood Count 10.6 10^3/uL (4.0-10.0)
[2021-11-07] VITALS (8 sets, daily range): BP systolic 95–114; BP diastolic 51–59; PULSE 64–74; RESP 16–17; TEMP 35.9–36.8; O2SAT 99
[2021-11-07] MEDS: ketorolac 30 mg/mL INJ IVP (02:42)
--- NOTE | 2021-11-07 07:45 | PM.DCS ---
Discharge Providers Date of Admission: 11/06/21 05:14 Date of Discharge: November 07, 2021 Attending Provider at Admission: Lanny Golden MD Attending Provider at Discharge: Lanny Golden MD Diagnoses at Discharge Discharge Diagnosis (1) Maternal varicella, non-immune: Status: Acute (2) Previous delivery affecting : Status: Acute Hospital Course Hospital Course The patient was admitted to the hospital for repeat . She did well postoperatively and requested discharge on postop day #1 Physical Exam Narrative: The patient has no concerns today Const: COMMON NORMALS: no acute distress, average body habitus, patient oriented x3, no limitations, healthy appearing, alert and well nourished GENERAL APPEARANCE: cooperative, comfortable, well kempt and well developed ORIENTATION/CONSCIOUSNESS: Yes awake, Yes oriented to person, Yes oriented to place and Yes oriented to time Resp: COMMON NORMALS: normal respiratory effort EFFORT & INSPECTION: Yes able to speak in complete sentences GI: COMMON NORMALS: Soft to palpation and non-tender PALPATION: Yes Soft to palpation Extremity: COMMON NORMALS: no calf tenderness Neuro: COMMON NORMALS: patient oriented x3 SENSORIUM/ORIENTATION: Yes alert, Yes oriented to person, Yes oriented to place and Yes oriented to time Psych: APPEARANCE: Yes well kempt Skin: WOUNDS: Yes surgical site (clean/dry/intact) Urinary Catheter Management: [place]: Cath Placed During This Visit: yes, but has since been removed by the nurse Reason for Continuing Indwelling Catheter: Decision to DC Catheter Urinary Catheter Date of Insertion: 11/06/21 Urinary Catheter Time of Insertion: 07:52 Date Urinary Catheter Removed: 11/07/21 Time Urinary Catheter Discontinued: 05:40 Discharge Data Studies Completed and Pending Laboratory Results WBC 10.6 10^3/uL (4.0-10.0) H 11/06/21 22:30 RBC 3.22 10^6/uL (4.1-5.3) L 11/06/21 22:30 Hgb 9.8 g/dL (11.5-15.3) L 11/06/21 22:30 Hct 27.7 % (37.0-47.0) L 11/06/21 22:30 MCV 86.0 fl (81-99) 11/06/21 22:30 MCH 30.4 pg (28.0-34.0) 07/21/22 22:30 MCHC 35.4 g/dL (30.0-36.0) 11/06/21 22:30 RDW 13.8 % (12.1-15.1) 11/06/21 22:30 Plt Count 151 10^3/cmm (130-400) 11/06/21 22:30 MPV 10.1 fL (7.4-10.4) 11/06/21 22:30 Neut % (Auto) 58.5 % 11/06/21 05:47 Lymph % (Auto) 32.3 % 11/06/21 05:47 [place] % (Auto) 7.3 % 11/06/21 05:47 Eos % (Auto) 0.5 % 11/06/21 05:47 Baso % (Auto) 0.2 % 11/06/21 05:47 Neut # (Auto) 3.45 10^3/uL (1.8-7.7) 11/06/21 05:47 Lymph # (Auto) 1.9 10^3/uL (0.8-4.8) 11/06/21 05:47 [place] # (Auto) 0.4 10^3/uL (0.2-0.9) 11/06/21 05:47 Eos # (Auto) 0.0 10^3/uL (0.0-0.8) 11/06/21 05:47 Baso # (Auto) 0.0 10^3/uL (0.0-0.1) 11/06/21 05:47 Nucleated RBC % (auto) 0 % 11/06/21 05:47 Nucleated RBCs # 0.0 /100WBC 11/06/21 05:47 Blood Type A Positive 11/06/21 05:47 Rho(D) Type Positive 11/06/21 05:47 Vitals Last Vital Signs Temp 96.6 F L 11/07/21 00:06 Pulse 74 11/07/21 03:16 Resp 16 11/06/21 18:09 BP 95/55 11/07/21 03:16 Pulse Ox 98 11/06/21 18:09 Discharge Plan Discharge Patient Disposition: Home Condition: Stable Prescriptions: New ibuprofen 800 mg Tablet 800 mg PO TID Qty: 30 0RF hydrocodone-acetaminophen 5-325 mg Tablet 1 tab PO Q4H PRN (Reason: Moderate To Severe Pain) Qty: 30 0RF docusate sodium 100 mg Capsule 100 mg PO BID Qty: 60 0RF Continued Gummies 400 mcg-35 mg- 25 mg-5 mg tablet,chewable PO 0RF ferrous sulfate 140 mg (45 mg iron) tablet extended release 140 mg PO DAILY 0RF levothyroxine 175 mcg capsule 175 mcg PO DAILY Qty: 30 3RF Discharge Orders: Discharge Order (Routine); Ordered 11/07/21 Ordered By: Lanny Golden Patient Instructions: Opioid Safety Discharge Attestations Time Spent in Discharge Care*: less than 30 min Quality Metrics Clinical Quality Measures [ No reported AMI, CVA or VTE this stay] Coding Level of Care Code Acute [facility] note Diagnoses Maternal varicella, non-immune O09.899; Z28.3 Previous delivery affecting O34.219
[2021-11-07] MEDS: prenatal vitamin Capsule 1 CAP PO (08:34)
[2021-11-07] MEDS: ferrous sulfate EC 325 mg Tablet PO (08:34)
[2021-11-07] MEDS: docusate sodium 100 mg Capsule PO (08:34)
[2021-11-07] MEDS: ibuprofen 800 mg tablet PO (08:34)
== END 2021-11-07 13:20 | disposition home or self-care (01) | DRG 788 ==
PROVIDERS: Admitting Provider Obstetrics & Gynecology; Visit Provider Obstetrics & Gynecology
PROC: 10D00Z1 Extraction of Products of Conception, Low, Open Approach (ICD-10-PCS; CPT 59514; principal; 2021-11-06 07:00)
DX: O34.219 Maternal care for unspecified type scar from previous cesarean delivery (principal); Z3A.39 39 weeks gestation of pregnancy; Z37.0 Single live birth; Z85.850 Personal history of malignant neoplasm of thyroid; E89.0 Postprocedural hypothyroidism
CPT/HCPCS: 36415; 51702; 59025; 85025; 85027; 86900; J1885; J1940; J2274; J2370; J2765; J3490; J7040